=== PATIENT | male | born 1975 | race Caucasian/White ===

== ENCOUNTER 2020-06-24 13:03 | Emergency (ER) | payer OTHER ==
[~2020-06-24] VITALS: Ht 172.7 cm; Wt 98.0 kg
[2020-06-24] MEDS ORDERED: PREDNISONE50 MG PO (13:26)
[2020-06-24] MEDS ORDERED: NORCO 5-325 TA1 EAC2 PO (13:26)
[2020-06-24] MEDS ORDERED: IBUPROFEN 800800 M1 PO (13:26)
[2020-06-24] MEDS ORDERED: FLEXERIL PO (13:26)
[2020-06-24 13:49] VITALS: BP 130/83
== END 2020-06-24 13:49 | disposition home or self-care (01) ==
LOC: M.ERS 13:03
DX: M54.32 Sciatica, left side (principal); I10 Essential (primary) hypertension; Z88.5 Allergy status to narcotic agent; Z88.8 Allergy status to other drugs, medicaments and biological substances

== ENCOUNTER 2020-10-20 09:56 | Emergency (ER) | payer OTHER ==
[~2020-10-20] VITALS: Ht 175.3 cm; Wt 95.3 kg
[~2020-10-20 09:56] MED LIST: FLEXERIL PO; IBUPROFEN 800800 M1 PO; NORCO 5-325 TA1 EAC2 PO; PREDNISONE50 MG PO
[2020-10-20] MEDS ORDERED: LIPITOR10 MG PO (10:12)
[2020-10-20] MEDS ORDERED: MONTELUKAST SODI4 M1 PO (10:13)
[2020-10-20] MEDS ORDERED: OMEPRAZOLE 20 M20 M1 PO (10:13)
[2020-10-20] MEDS ORDERED: MELOXICAM7.5 MG PO (10:13)
[2020-10-20] MEDS ORDERED: GENTAK5 ML INTRAOCULR (10:59)
[2020-10-20 11:14] VITALS: BP 131/86
== END 2020-10-20 11:16 | disposition home or self-care (01) ==
LOC: M.ERS 09:56
DX: H10.9 Unspecified conjunctivitis (principal); I10 Essential (primary) hypertension; E78.5 Hyperlipidemia, unspecified; Z88.5 Allergy status to narcotic agent; Z88.8 Allergy status to other drugs, medicaments and biological substances